=== PATIENT | male | born 1960 | race Caucasian/White ===

== ENCOUNTER 2023-09-04 05:13 | Observation (INO) ==
--- NOTE | 2023-08-19 13:04 | PAT Medication Instructions ---
Medication Instructions Date of Service August 19, 2023 Home Medications albuterol sulfate 90 mcg/actuation aerosol inhaler (ProAir HFA) 1 inh inhalation QID PRN aspirin 81 mg capsule 81 mg PO HS carvedilol 6.25 mg tablet 6.25 mg PO BID cholecalciferol (vitamin D3) 125 mcg (5,000 unit) tablet (Vitamin D3) 125 mcg PO QAM clonidine HCl 0.1 mg tablet 0.1 mg PO BID epinephrine 0.3 mg/0.3 mL injection, auto-injector 0.3 mg IM Q4H PRN Anaphylaxis fluticasone furoate 100 mcg-vilanterol 25 mcg/dose inhalation powder (Breo Ellipta) 1 inh inhalation QAM folic acid 1 mg tablet 1 mg PO QAM gabapentin 100 mg capsule 100 mg PO QAM gabapentin 300 mg capsule 300 mg PO HS ipratropium 0.5 mg-albuterol 3 mg (2.5 mg base)/3 mL nebulization soln 3 ml inhalation Q4H PRN sob levetiracetam 750 mg tablet (Keppra) 1,125 mg PO QAM levetiracetam 750 mg tablet (Keppra) 1,500 mg PO HS levocetirizine 5 mg tablet (Xyzal) 5 mg PO HS loratadine 10 mg tablet 10 mg PO QAM metformin 500 mg tablet,extended release 24hr 1,000 mg PO BID multivitamin 1 tab PO QAM omega-3 acid ethyl esters 1 gram capsule (Lovaza) 1 cap PO QAM oxycodone 5 mg tablet 5 mg PO TID PRN Severe Pain (Scale Score 7-10) sildenafil 100 mg tablet (Viagra) 100 mg PO QAM urinary retention/BPH simvastatin 10 mg tablet 10 mg PO HS tamsulosin 0.4 mg capsule 0.4 mg PO QAM thiamine HCl (vitamin B1) 100 mg tablet (Vitamin B-1) 100 mg PO QAM tiotropium bromide 18 mcg capsule with inhalation device (Spiriva with HandiHale r) 1 cap inhalation QAM MEDICATION INSTRUCTIONS: Continue as directed albuterol sulfate 90 mcg/actuation aerosol inhaler (ProAir HFA) 1 inh inhalation QID PRN (use if needed; BRING TO HOSPITAL) tiotropium bromide 18 mcg capsule with inhalation device (Spiriva with HandiHaler) 1 cap inhalation QAM fluticasone furoate 100 mcg-vilanterol 25 mcg/dose inhalation powder (Breo Ellipta) 1 inh inhalation QAM ipratropium 0.5 mg-albuterol 3 mg (2.5 mg base)/3 mL nebulization soln 3 ml inhalation Q4H PRN sob epinephrine 0.3 mg/0.3 mL injection, auto-injector 0.3 mg IM Q4H PRN Anaphylaxis ASK your prescriber and surgeon aspirin 81 mg capsule 81 mg PO HS STOP taking 2 weeks before surgery omega-3 acid ethyl esters 1 gram capsule (Lovaza) 1 cap PO QAM DO NOT take the morning of surgery multivitamin 1 tab PO QAM loratadine 10 mg tablet 10 mg PO QAM folic acid 1 mg tablet 1 mg PO QAM cholecalciferol (vitamin D3) 125 mcg (5,000 unit) tablet (Vitamin D3) 125 mcg PO QAM thiamine HCl (vitamin B1) 100 mg tablet (Vitamin B-1) 100 mg PO QAM metformin 500 mg tablet,extended release 24hr 1,000 mg PO BID Take morning of surgery With a small sip of water, OTHERWISE NOTHING TO EAT OR DRINK AFTER MIDNIGHT: gabapentin 100 mg capsule 100 mg PO QAM tamsulosin 0.4 mg capsule 0.4 mg PO QAM levetiracetam 750 mg tablet (Keppra) 1,125 mg PO QAM carvedilol 6.25 mg tablet 6.25 mg PO BID oxycodone 5 mg tablet 5 mg PO TID PRN Severe Pain (Scale Score 7-10) clonidine HCl 0.1 mg tablet 0.1 mg PO BID sildenafil 100 mg tablet (Viagra) 100 mg PO QAM urinary retention/BPH Take evening before surgery simvastatin 10 mg tablet 10 mg PO HS levetiracetam 750 mg tablet (Keppra) 1,500 mg PO HS gabapentin 300 mg capsule 300 mg PO HS levocetirizine 5 mg tablet (Xyzal) 5 mg PO HS carvedilol 6.25 mg tablet 6.25 mg PO BID oxycodone 5 mg tablet 5 mg PO TID PRN Severe Pain (Scale Score 7-10) clonidine HCl 0.1 mg tablet 0.1 mg PO BID metformin 500 mg tablet,extended release 24hr 1,000 mg PO BID Other Notes If you have any questions please call us at [phone] or [phone] or [phone] or [phone]
--- NOTE | 2023-08-22 14:29 | Anesthesiology Consultation ---
Date of Service August 22, 2023 Assessment & Plan (1) Encounter for pre-operative examination: - Check BSG AM DOS - Infectious disease screening: Per assessment on 08/22/23: No known infectious disease contacts or current infectious disease symptoms. No noted Covid positive test result in past 90 days. - Outpatient joint assessment: Pt currently scheduled for inpatient pathway. If surgeon requests review for outpatient joint pathway, patient is not recommended candidate for outpatient joint program from anesthesia standpoint based on available information. - Neurology visit (08/25/23): "Pt is currently taking Keppra 751.5 tabs a.m. and 2 tabs p.o. at bedtime. He has been stable on this current medication regimen for seizures. He has not had a seizure since medication was adjusted. He has not had lab work to check this level since October. His gabapentin was increased from the pain clinic.. He did have increased dizziness due to the increase in the med he thinks. He had an episode where he was very dizzy and fell.. He was able to return to his normal activities after he fell.. He is having a reverse shoulder replacement in 10 days.. Pt most likely had dizziness from medication interaction vs. BP vs. venous stasis issue. Advised to obtain compression stockings for dizziness. Can possibly D/C gabapentin extra dose after surgery. No seizures. He is doing well." - PCP visit (08/28/23): "Recent preop testing done.. Notable for hyponatremia at 125. Over past 2 years sodium has been running low 130s but a couple of years ago it was down as low as 124. He is on Keppra w/ neuro for seizure prevention. He does continue at least 3 beers/day & poor water intake. Keppra was decreased by a 1/2 tab in February.. Repeat BMP drawn this AM, result pending.. Remaining preop testing acceptable.. The patient's current cardiac risk factors include: TIA history. According to the revised cardiac risk index, patient's risk for surgery is one-point/class II risk. According to [facility] perioperative risk calculator, the patient's risk of CA/cardiac arrest after surgery is: 0.2%. At this time, patient's current medical conditions are stable and pt is optimized for surgery. I do recommend preop eval w/ cardiology prior to surgery which pt has planned for . His sodium shows improvement from last week which she will continue to work on. We will stop AM gabapentin. No other med changes at this time. Congratulated on cutting back to 11 1/2 beer daily over the past couple months." > 08/28 updated labs have improved hyponatremia with sodium at 128* - Hyponatremia: Preop sodium on 08/22/23 was 125. Per PCP, patient with chronic hyponatremia with baseline in the low 130s x years but down as low as 124 in the past. PCP had patient repeat BMP 08/28/23- sodium had improved to 128. PCP visit 08/28/23: "At this time, patient's current medical conditions are stable and pt is optimized for surgery." > Reviewed with Dr. Abraham. Will recheck sodium level DOS (order placed). - Confirmed with Rhoda at [facility] cardiology that appt scheduled 09/01 is for preop evaluation. Patient acceptable risk for surgery pending preop cardiology evaluation ([facility] cardio, appt 09/01). Chart Review Chart Review: Patient seen in Pre Admission Testing Teaching & Discussion Pre-Anesthesia Teaching/Discussion Notes: Instructed NPO after midnight before surgery,except medications with 15 cc of water. Medication instructions provided according to the PAT guidelines. History Surgery Operation Date: 09/04/23 09:20 Proposed Procedures p Right Total Shoulder Arthroplasty Reverse - Misbah Wilson MD Height/Weight Height: 6 ft 2 in Weight: 83.5 kg Allergies Allergy/AdvReac Type Severity Reaction Status Date / Time cephalexin [From Keflex] Allergy Severe Respiratory Verified 08/20/23 12:30 distress hydromorphone [From Dilaudid] Allergy Severe Seizure Verified 08/14/23 09:40 peanut Allergy Severe Anaphylaxis Verified 08/14/23 09:40 tramadol Allergy Severe Seizure Verified 08/14/23 09:40 Corticosteroids Allergy Intermediate Unknown Verified 08/20/23 12:30 (Glucocorticoids) chocolate flavor Allergy Unknown Allergy Verified 08/20/23 12:30 test positive guaifenesin [From Entex LA] Allergy Unknown Unknown Verified 08/14/23 09:40 phenylephrine [From Entex LA] Allergy Unknown Unknown Verified 08/14/23 09:40 phenylpropanolamine Allergy Unknown Unknown Verified 08/14/23 09:40 [From Entex LA] Medications Home Medications Medication Instructions Recorded Confirmed Last Taken albuterol sulfate 90 mcg/actuation 1 inh inhalation QID PRN sob 08/14/23 08/14/23 Unknown aerosol inhaler (ProAir HFA) aspirin 81 mg capsule 81 mg PO HS 08/14/23 08/14/23 Unknown carvedilol 6.25 mg tablet 6.25 mg PO BID 08/14/23 08/14/23 Unknown cholecalciferol (vitamin D3) 125 125 mcg PO QAM 08/14/23 08/14/23 Unknown mcg (5,000 unit) tablet (Vitamin D3) clonidine HCl 0.1 mg tablet 0.1 mg PO BID 08/14/23 08/14/23 Unknown epinephrine 0.3 mg/0.3 mL 0.3 mg IM Q4H PRN Anaphylaxis 08/14/23 08/14/23 Unknown injection, auto-injector fluticasone furoate 100 1 inh inhalation QAM 08/14/23 08/14/23 Unknown mcg-vilanterol 25 mcg/dose inhalation powder (Breo Ellipta) folic acid 1 mg tablet 1 mg PO QAM 08/14/23 08/14/23 Unknown gabapentin 100 mg capsule 100 mg PO QAM 08/14/23 08/14/23 Unknown gabapentin 300 mg capsule 300 mg PO HS 08/14/23 08/14/23 Unknown ipratropium 0.5 mg-albuterol 3 mg 3 ml inhalation Q4H PRN sob 08/14/23 08/14/23 Unknown (2.5 mg base)/3 mL nebulization soln levetiracetam 750 mg tablet 1,125 mg PO QAM 08/14/23 08/14/23 Unknown (Keppra) levetiracetam 750 mg tablet 1,500 mg PO HS 08/14/23 08/14/23 Unknown (Keppra) levocetirizine 5 mg tablet (Xyzal) 5 mg PO HS 08/14/23 08/14/23 Unknown loratadine 10 mg tablet 10 mg PO QAM 08/14/23 08/14/23 Unknown metformin 500 mg tablet,extended 1,000 mg PO BID 08/14/23 08/14/23 Unknown release 24hr multivitamin 1 tab PO QAM 08/14/23 08/14/23 Unknown omega-3 acid ethyl esters 1 gram 1 cap PO QAM 08/14/23 08/14/23 Unknown capsule (Lovaza) oxycodone 5 mg tablet 5 mg PO TID PRN Severe Pain (Scale 08/14/23 08/14/23 Unknown Score 7-10) ramipril 10 mg capsule 10 mg PO QAM 08/14/23 08/14/23 Unknown sildenafil 100 mg tablet (Viagra) 100 mg PO QAM urinary retention/BPH 08/14/23 08/14/23 Unknown simvastatin 10 mg tablet 10 mg PO HS 08/14/23 08/14/23 Unknown tamsulosin 0.4 mg capsule 0.4 mg PO QAM 08/14/23 08/14/23 Unknown thiamine HCl (vitamin B1) 100 mg 100 mg PO QAM 08/14/23 08/14/23 Unknown tablet (Vitamin B-1) tiotropium bromide 18 mcg capsule 1 cap inhalation QAM 08/14/23 08/14/23 Unknown with inhalation device (Spiriva with HandiHaler) Past Medical History Medical History Anxiety situational Asthma BPH (benign prostatic hyperplasia) Chronic bronchitis with COPD (chronic obstructive pulmonary disease) Stable Degenerative disc disease Degenerative joint disease Diabetes mellitus, type 2 NIDDM Heartburn diet controlled Hepatitis B Hx approximately 2002, no current issues per patient Hx of colonic polyp Hypertension Lyme disease Hx approximately 2018, no problems since Osteoarthritis Pneumonia Multiple, most recent episode approximately 2014 Seizure Grand-mal seizures. Last seizure approximately 2019 Follows with [facility] (annually)- appt 08/25/23 Sleep apnea 3lpm via [place] HS Transient ischemic attack (TIA) Approximately 2019 Exercise / Class Metabolic Activity III < 4 Walking/Shop/Light housework (one FS (no CP, + SOB)) Past Family History Family History Brother FHx: colon cancer Other No family history of adverse response to anesthesia Past Surgical History Surgical History H/O left inguinal hernia repair History of amputation left ring finger (young adult) History of cardiac cath x2 (10+ years) no stents. unable to tolerate stress test (reason for cardiac caths) History of cholecystectomy History of colonoscopy History of nasal septoplasty S/P arthroscopy of right shoulder + RCR S/P epidural steroid injection lumbar and cervical S/P hammer toe correction B/L Past Anesthesia History No Hx of Anesthesia Complications and No Family Hx of Anesthesia Complications History of PONV No Hx of PONV and No Hx of Motion Sickness Social History Smoking Status: Current every day smoker Smoking cigarettes per day: 20 cigs/day Do You Dip or Chew Tobacco: No Hx Alcohol Use: Yes Alcohol type: beer alcohol intake frequency: 3 or more drinks per day (3 beers/day) Hx Substance Use: No substance use type: does not use Review of Systems Patient denies chest pain, shortness of breath, fever, chills, cough, wheezing, palpitations. Physical Exam Vital Signs VITALS BP 91/65 (Per patient, recent BP med adjustments being made, will f/u with cardio prior to surgery to further review/adjust if needed) P 89 TEMP 98.1 SP02 96%RA RESP 16 PHYSICAL Mildly decreased cervical extension range of motion. Full TMJ range of motion. TMD 4 finger breaths Mallampati Score 1 Dentition: full dentures upper/lower Lungs: + crackles, mild expiratory wheezes Cardiac: regular rate and rhythm, no murmurs noted Spine: normal Carotid arteries: negative bruit Extremities: left ring finger amputation Short welsh Lab Results Anesthesia Preop Results Results Anesthesia Widget: WBC 6.19 K/ul (4.8-10.8) 08/22/23 Hgb 12.8 g/dl (14.0-18.0) L 08/22/23 Hct 34.9 % (42.0-52.0) L 08/22/23 Plt 202 K/uL (130-400) 08/22/23 Na 125 mmol/L (136-145) L 08/22/23 K 4.4 mmol/L (3.5-5.1) 08/22/23 Cl 92 mmol/L (98-107) L 08/22/23 CO2 27 mmol/L (21-32) 08/22/23 BUN 7 mg/dl (6-23) 08/22/23 Creat 0.87 mg/dl (0.6-1.4) 08/22/23 Glucose Level 104 mg/dl (70-99(Fasting)) H 08/22/23 PT 10.0 Seconds (9.0-12.0) 08/22/23 PTT 28.8 Seconds (21.0-31.0) 08/22/23 INR 0.9 (0.9-1.1) 08/22/23 HA1c 5.8 % (4.5-5.6) H 08/22/23 Urine Color Yellow 08/22/23 Urine Appearance Clear (Clear) 08/22/23 Urine pH 7.5 (4.5-7.5) 08/22/23 Urine Specific [place] 1.004 (1.000-1.030) 08/22/23 Urine Protein Negative (Negative) 08/22/23 Urine Glucose (UA) Negative (Negative) 08/22/23 Urine Ketones Negative (Negative) 08/22/23 Urine Blood Negative (Negative) 08/22/23 Urine Nitrite Negative (Negative) 08/22/23 Urine Bilirubin Negative (Negative) 08/22/23 Urine Urobilinogen Negative (Negative) 08/22/23 Urine Leukocyte Esterase Negative (Negative) 08/22/23 Blood Type O Positive 08/22/23 Antibody Screen NEGATIVE 08/22/23 Testing Electrocardiogram Date: 07/15/23 SR at 89bpm. Chest X-Ray Date: 08/22/23 FINDINGS: Cardiac mediastinal and hilar silhouettes are within normal limits. No pneumothorax, pleural effusion, airspace consolidation or pulmonary edema. Age- indeterminate mild midthoracic compression deformity without retropulsion. IMPRESSION: No acute process. Echocardiogram Date: 03/29/20 EF 55-60%. Poorly visualized cardiac valves with no significant stenosis or insufficiency by Doppler interrogation. Stress Test Exercise stress test Date: 04/12/2020 Exercise treadmill test is negative for ischemia with target heart rate achieved but at a very low workload of 3.0 METS, which is indicative of cardiovascular deconditioning. Given the development of chest pain with exercise stress, further workup with pharmacologic stress testing is recommended. Lexiscan Cardiolite stress test Date: 05/09/2020 "No ischemia or infarct" per 06/2023 cardiology office visit note, attempts to obtain official report unsuccessful* Other Testing CTA Neck Date: 03/28/2020 "Nl study" per 06/2023 cardiology office visit note, attempts to obtain official report unsuccessful*
--- NOTE | 2023-09-03 19:01 | History & Physical Report ---
Date of Service September 03, 2023 Assessment & Plan (1) Rotator cuff arthropathy of right shoulder: Plan: Treatment options discussed with patient. He has AVN as well as likely failed rotator cuff repair. He has failed conservative measures and would like to proceed with surgery. Risks, benefits and alternatives to surgery including but not limited to infection, DVT, pain, stiffness, need for revision surgery, damage to blood vessels, damage to nerves, PE, , were discussed with the patient and they wish to proceed. Plan on right reverse total shoulder arthroplasty scheduled fo 09/04/23 at [facility] with Dr. Wilson. All questions answered. Patient will follow up post op. History of Present Illness Chief Complaint: Right shoulder pain Primary Care Provider: Evelyn Naranjo PA-C 63yo male with PMHx significant for anxiety, asthma, BPH, COPD, HepB, DM2, HTN , seizure disorder who presents with ongoing right shoulder pain worsened after a fall in April. Patient has history of prior dislocation as well as previous rotator cuff repair with failed repair. He has ongoing pain interfering with his daily activity. He has failed conservative measures and would like to proceed with surgical intervention. Patient denies headaches, sweats, fevers, chills, double vision, blurred vision, cough, sore throat, dysphagia, chest pain, sob, wheezing, n/v/d/c, numbness, tingling, fatigue, urinary symptoms, mood disorders. ROS positive for right shoulder pain and stiffness. Allergies Allergy/AdvReac Type Severity Reaction Status Date / Time cephalexin [From Keflex] Allergy Severe Respiratory Verified 08/20/23 12:30 distress hydromorphone [From Dilaudid] Allergy Severe Seizure Verified 08/14/23 09:40 peanut Allergy Severe Anaphylaxis Verified 08/14/23 09:40 tramadol Allergy Severe Seizure Verified 08/14/23 09:40 Corticosteroids Allergy Intermediate Unknown Verified 08/20/23 12:30 (Glucocorticoids) chocolate flavor Allergy Unknown Allergy Verified 08/20/23 12:30 test positive guaifenesin [From Entex LA] Allergy Unknown Unknown Verified 08/14/23 09:40 phenylephrine [From Entex LA] Allergy Unknown Unknown Verified 08/14/23 09:40 phenylpropanolamine Allergy Unknown Unknown Verified 08/14/23 09:40 [From Entex LA] Home Medications Medication Instructions Recorded Confirmed Type albuterol sulfate 90 mcg/actuation 1 inh inhalation QID PRN sob 08/14/23 08/14/23 History aerosol inhaler (ProAir HFA) aspirin 81 mg capsule 81 mg PO HS 08/14/23 08/14/23 History carvedilol 6.25 mg tablet 6.25 mg PO BID 08/14/23 08/14/23 History cholecalciferol (vitamin D3) 125 125 mcg PO QAM 08/14/23 08/14/23 History mcg (5,000 unit) tablet (Vitamin D3) clonidine HCl 0.1 mg tablet 0.1 mg PO BID 08/14/23 08/14/23 History epinephrine 0.3 mg/0.3 mL 0.3 mg IM Q4H PRN Anaphylaxis 08/14/23 08/14/23 History injection, auto-injector fluticasone furoate 100 1 inh inhalation QAM 08/14/23 08/14/23 History mcg-vilanterol 25 mcg/dose inhalation powder (Breo Ellipta) folic acid 1 mg tablet 1 mg PO QAM 08/14/23 08/14/23 History gabapentin 100 mg capsule 100 mg PO QAM 08/14/23 08/14/23 History gabapentin 300 mg capsule 300 mg PO HS 08/14/23 08/14/23 History ipratropium 0.5 mg-albuterol 3 mg 3 ml inhalation Q4H PRN sob 08/14/23 08/14/23 History (2.5 mg base)/3 mL nebulization soln levetiracetam 750 mg tablet 1,125 mg PO QAM 08/14/23 08/14/23 History (Keppra) levetiracetam 750 mg tablet 1,500 mg PO HS 08/14/23 08/14/23 History (Keppra) levocetirizine 5 mg tablet (Xyzal) 5 mg PO HS 08/14/23 08/14/23 History loratadine 10 mg tablet 10 mg PO QAM 08/14/23 08/14/23 History metformin 500 mg tablet,extended 1,000 mg PO BID 08/14/23 08/14/23 History release 24hr multivitamin 1 tab PO QAM 08/14/23 08/14/23 History omega-3 acid ethyl esters 1 gram 1 cap PO QAM 08/14/23 08/14/23 History capsule (Lovaza) oxycodone 5 mg tablet 5 mg PO TID PRN Severe Pain (Scale 08/14/23 08/14/23 History Score 7-10) ramipril 10 mg capsule 10 mg PO QAM 08/14/23 08/14/23 History sildenafil 100 mg tablet (Viagra) 100 mg PO QAM urinary retention/BPH 08/14/23 08/14/23 History simvastatin 10 mg tablet 10 mg PO HS 08/14/23 08/14/23 History tamsulosin 0.4 mg capsule 0.4 mg PO QAM 08/14/23 08/14/23 History thiamine HCl (vitamin B1) 100 mg 100 mg PO QAM 08/14/23 08/14/23 History tablet (Vitamin B-1) tiotropium bromide 18 mcg capsule 1 cap inhalation QAM 08/14/23 08/14/23 History with inhalation device (Spiriva with HandiHaler) Past Med/Surg History Medical History Anxiety situational Asthma BPH (benign prostatic hyperplasia) Chronic bronchitis with COPD (chronic obstructive pulmonary disease) Stable Degenerative disc disease Degenerative joint disease Diabetes mellitus, type 2 NIDDM Heartburn diet controlled Hepatitis B Hx approximately 2002, no current issues per patient Hx of colonic polyp Hypertension Lyme disease Hx approximately 2018, no problems since Osteoarthritis Pneumonia Multiple, most recent episode approximately 2015 Seizure Grand-mal seizures. Last seizure approximately 2019 Follows with [facility] (annually)- appt 08/25/23 Sleep apnea 3lpm via [place] HS Transient ischemic attack (TIA) Approximately 2019 Surgical History H/O left inguinal hernia repair History of amputation left ring finger (young adult) History of cardiac cath x2 (10+ years) no stents. unable to tolerate stress test (reason for cardiac caths) History of cholecystectomy History of colonoscopy History of nasal septoplasty S/P arthroscopy of right shoulder + RCR S/P epidural steroid injection lumbar and cervical S/P hammer toe correction B/L Family History Brother FHx: colon cancer Other No family history of adverse response to anesthesia Social History Smoking Status: Current every day smoker Tobacco Type: Cigarettes Cigarettes Per Day: 20 cigs/day; Second Hand Exposure: No; Do You Dip or Chew Tobacco: No; Tobacco Cessation Education Requested by Patient: No Hx Alcohol Use: Yes Alcohol type: beer Hx Substance Use: No Preferred Language: Uzbek Communication Ability: Effective Experimental Display Builder Required: No Beliefs That Will Affect Care: None Current Living Situation: Spouse Other Information That Helps Us Care for You: No Feels Safe at Home: Yes Safety Concerns: Feels Safe At This Time Assistive Devices: Cane, Glasses, Oxygen - at Night, Scooter/Electric Scooter and Walker Review of Systems All systems reviewed & are unremarkable except as noted in HPI & below Physical Exam Constitutional: well developed and well nourished; no acute distress Eyes: PERRL, conjunctivae normal, anicteric sclerae ENMT: external ear and nose normal, oropharynx normal Neck: trachea midline, no thyromegaly Respiratory: normal respiratory effort, lungs clear to auscultation Cardiovascular: RRR, no murmur, no edema Musculoskeletal: Right shoulder: Tenderness anterolateral acromion. Positive impingement signs, Significant deficits active ROM. Functional deltoid. Abductiont o 45 degrees, FF to 30 degrees, ER to 10 degrees. Strength-3+/5 ER, 5-/5 IR, abduction to 3/5. Skin: no rashes, warm and dry Neurologic: patellar DTR's 2+ bilat, sensation intact Psychiatric: A+Ox3, euthymic affect Results & Data Diagnostic Findings Right shoulder radiographs demonstrate defect humeral head consistent with AVN, proximal migration of humerus. MRI demonstrates increased signal humeral head consistent with AVN, likely failed rotator cuff repair with thin layer of tissue likely scar.
[2023-09-04] MEDS ORDERED: VANCOMYCIN HCL 1,250 MG in SODIUM CHLORIDE 0.9% 250 ML IV SCH (06:00)
[2023-09-04] MEDS ORDERED: METOCLOPRAMIDE HCL 10 MG TABLET PO SCH (06:00)
[2023-09-04] MEDS ORDERED: TRANEXAMIC ACID 1,000 MG **IV Intra-op IV SCH (06:00)
[2023-09-04] MEDS ORDERED: GABAPENTIN 300 MG CAP PO SCH ×2 (06:00→21:00)
[2023-09-04] MEDS ORDERED: CeleBREX 200 MG CAP PO SCH (06:00)
[2023-09-04] MEDS ORDERED: ACETAMINOPHEN 500 MG TAB PO SCH (06:00)
[2023-09-04] MEDS ORDERED: TRANEXAMIC ACID 1,000 MG **IV Pre-op IV SCH (06:00)
[2023-09-04] MEDS ORDERED: LR 60ML/HR IV SCH (06:00)
[2023-09-04] MEDS ORDERED: FAMOTIDINE 20 MG TAB PO SCH (06:00)
[2023-09-04 06:05] LABS: BUN Creatinine Ratio 7.8 (10-20); Calcium 9.2 mg/dl (8.6-10.3); Creatinine Clr Calc Pharmacy 95.1 ml/min; Est GFR (African American) 103.5 ml/min; Est GFR (Non-African American) 89.3 ml/min; Potassium 4.3 mmol/L (3.5-5.1)
[2023-09-04] MEDS ORDERED: BUPIVACAINE 0.5 % 5 MG/1 ML PF 10ML VIAL ONE (06:23)
[2023-09-04] MEDS ORDERED: PROPOFOL IV EMULSION 10 MG/ML 20 ML VIAL IV ONE (06:36)
[2023-09-04] MEDS ORDERED: MIDAZOLAM HCL 1 MG/ML 2ML VIAL ONE ×2 (06:36)
[2023-09-04] MEDS ORDERED: fentaNYL citrate PF 100 MCG/2 ML VIAL ONE (06:36)
[2023-09-04] MEDS ORDERED: LIDOCAINE 2% 2 ML VIAL/AMP(20MG/ML) INFIL ONE (06:36)
[2023-09-04] MEDS ORDERED: ROCURONIUM BROMIDE 10 MG/ML 5 ML VIAL IV ONE ×2 (06:37→09:45)
[2023-09-04] MEDS ORDERED: ONDANSETRON INJ 2 MG/ML 2 ML VIAL ONE ×2 (06:37→08:06)
--- NOTE | 2023-09-04 07:10 | History & Physical Bridge Note ---
Date of Service September 04, 2023 History & Physical Bridge Note I have examined the patient, reviewed the History & Physical and in the interval since the performance of the History & Physical I have noted the following changes of clinical significance: no changes noted
[2023-09-04] MEDS ORDERED: ePHEDrine sulfate 50 MG/ML AMP ONE (07:56)
[2023-09-04] MEDS ORDERED: PROMETHAZINE HCL 12.5 MG in SODIUM CHLORIDE 0.9% 50 ML IV PRN (09:04)
[2023-09-04] MEDS ORDERED: FLUMAZENIL 0.1 MG/1 ML 10 ML VIAL IV PRN (09:04)
[2023-09-04] MEDS ORDERED: LABETALOL HCL IV 5 MG/ML 20ML IV PRN (09:04)
[2023-09-04] MEDS ORDERED: ATROPINE SULFATE 0.1 MG/ML 10ML SYR IV PRN (09:04)
[2023-09-04] MEDS ORDERED: ePHEDrine sulfate 50 MG/ML AMP IV PRN (09:04)
[2023-09-04] MEDS ORDERED: NALOXONE HCL 0.4 MG/1 ML VIAL/CARP IV PRN ×2 (09:04→12:00)
[2023-09-04] MEDS ORDERED: ONDANSETRON INJ 2 MG/ML 2 ML VIAL IV PRN ×2 (09:04→12:00)
[2023-09-04] MEDS ORDERED: SUGAMMADEX SODIUM 200 MG/2 ML VIAL IV ONE (09:17)
[2023-09-04] MEDS ORDERED: LABETALOL HCL IV 5 MG/ML 20ML IV ONE (10:57)
[2023-09-04] MEDS: fentaNYL citrate PF 100 MCG/2 ML VIAL IV PRN ×2 (11:10→11:15)
--- NOTE | 2023-09-04 11:11 | Operative Report ---
Post Operative Report Pre & Post Diagnosis Operation Date: 09/04/23 07:00 Pre-Op Diagnosis: Right Shoulder Avascular necrosis humeral head,Rotator Cuff arthropathy, history of prior rotator cuff repair. Post-Op Diagnosis: Right Shoulder Avascular process humeral head, rotator cuff arthropathy, history of prior rotator cuff repair with retained hardware, Biceps tendinopathy. I identified the patient and participated in the time-out.: Yes Procedure Operation Date: 09/04/23 07:00 Actual Procedures p Right Reverse Total Shoulder Arthroplasty, biceps tenodesis, hardware removal (suture anchors x4 and old suture material ) - Misbah Wilson MD Surgeon Misbah Wilson MD Pulmonologist/Intensivist Gopal MITTAL Estimated Blood Loss 75 Findings Consistent with Post-Op Diagnosis Specimens humeral head cut Drains 2 Hemovac Anesthesia Type General Regional Complications none Disposition Accompanied Patient To Recovery: No Disposition: Recovery Room Indications 63-year-old male with chronic pain dysfunction pseudo paralytic arm post arthroscopic rotator cuff repair surgery. Patient has AVN humeral head with collapse and large cystic changes in the head greater tuberosity area with thin rotator cuff tissue proximal migration of the humerus but no clear complete tear of the rotator cuff. Patient only had 20 degrees of flexion and abduction actively with exam in preop holding area. Description of Procedure The patient was taken to the operating room and anesthetized under regional block and general anesthetic. The patient was positioned on the operating table in a 30 beach chair position with a towel roll under the medial border of the right scapula. The arm was draped free to be able to manipulate the shoulder as needed. The right upper extremity was prepped and draped in usual sterile fashion. Exam demonstrated good passive range of motion with flexion to 150 degrees abduction 100 degrees external rotation 70 degrees. There is crepitation with range of motion. All benign appearing arthroscopic scars noted. An anterior deltopectoral approach was performed. A longitudinal incision was made in the deltopectoral interval. The skin was incised sharply. Subcutaneous flaps were elevated off the fascia. The cephalic vein was dissected out and retracted lateral with the deltoid. The clavipectoral fascia was substantially scarred and there was scarred bursal tissue overlying the rotator cuff. The scarred clavipectoral fascia was divided at the lateral margin of the conjoined tendon and extended up to the CA ligament. The scarred subacromial bursa was dissected off the rotator cuff. This revealed that there was thin intact scarred rotator cuff tissue covering the humeral head in the subacromial space. Biceps tendon was widened inflamed and substantially scarred up into the bicipital groove area. it seemed to be lax and there was no intra-articular biceps so this may have been ruptured or released previously. the biceps tendon was tenodesed to the pectoralis tendon using a [id number] suture and combination whipstitch type suture technique. The circumflex vessels were identified and tied off with silk ties and divided laterally. The subscapularis tendon was then taken down off of the lesser tuberosity subperiosteally with a peel technique, a Vicryl traction suture was placed and a subperiosteal dissection was performed along the neck of the humerus as the arm was gradually externally rotated exposing the humeral head. The humeral head findings demonstrated evidence of softening of the articular surface with collapse consistent with avascular necrosis as well as cystic changes in the head laterally adjacent to the greater tuberosity with deformity of the head. retractors were readjusted and a Colon elevator was used to assist in releasing the capsule of the neck of the humerus. The capsule underlying the subscapularis tendon was accessed with rotator interval area and incision was carried down to around the 5 o'clock position the capsule from the subscapularis tendon staying above the level of the axillary nerve. A Fukuda retractor was placed into the joint retracting the humeral head posterior. Glenoid findings demonstrated Normal articular surface and labrum. The labrum was resected. an anterior-inferior and posterior inferior capsular release were performed with electrocautery and a Colon elevator on bone. Attention was then taken to the humeral preparation. The cutting guide was placed into the humeral head. It was positioned at 20 of retroversion. Oscillating saw was used to resect the humeral head giving the cut above the level of the posterior rotator cuff insertion site. The humerus was then prepared for the stem. I used the ascend flex stem from [employer]. the centering awl was used to enter the canal and peek anchors were encountered which were limiting the exposure. I removed 2 Helicoil peek anchors along with associated sutures and the tips of MultiFix type anchors were also removed. The sizing broaches were then used followed by trial broaches up to a size 4B long which had the appropriate fit and fill. The appropriate sized cut protector was placed. The humerus was then retracted posterior to the glenoid. The glenoid was sized for a 36 mm glenosphere. The guide for the 25 mm baseplate was positioned in a 10 inferior tilt and the central drill hole was made. The reamer for the 25 mm aequalis baseplate was used. The central drill was widened for the peg. The hydroxyapatite-coated 25 mm standard post baseplate was impacted into position. The base plate was transfixed with superior and inferior locking screws and anterior and posterior compression screws with stable fixation. The fan reamer was used for the 36 millimeter glenoid sphere. After irrigation the36 millimeter +2 inferior offset glenoid sphere was impacted onto the baseplate and the security screw was tightened. Attention was taken back to the humerus. The cut protector was removed and the +0 low offset humeral tray trial was assembled to the trial stem rotated appropriately to get bony coverage and then screwed in position. A trial reduction was performed. I could not reduce the humerus to the glenoid because it was too tight. The trial was removed and I took 4 mm of bone off the neck with a new neck cut and we broached the humerus and subsequently performed another trial reduction which reduced well with good stability no shuck and good range of motion. The trials were removed. 3 drill holes are made into the harder bone in the bicipital groove area and 3 #5 FiberWire sutures were placed transosseously. The canal was irrigated with antibiotic solution with bacitracin. The final component was assembled. The final component was low offset +0 tray assembled to ascend flex PTC 4B long stem with +6, 36 mm reversed polyethylene insert.This was then impacted into the humerus with a tight press-fit. It was reduced to the glenoid sphere. Stability was verified. Subscapularis was repaired with the #5 FiberWire sutures using Madhav-Mario suture technique. Lateral row soft tissue repair was performed with #2 FiberWire [id number] sutures. The pectoralis was repaired with #2 FiberWire emvvyk-[id number]-xcrmo sutures reinforcing the biceps tendon tenodesis. The arm was taken through a range of motion which demonstrated 140 degrees forward flexion 100 degrees AB duction and 45 degrees external rotation without tension on repair. The implant was stable through the range of motion tested. The wound was copiously irrigated. 2 Hemovac drains were placed. The deltopectoral interval was closed with [id number] #1 Vicryl sutures. The subcutaneous tissues were closed with 2-0 Vicryl sutures. The skin was closed with [place]. Sterile dressings were applied and a shoulder immobilizer. Gopal MITTAL, My physician assistant professor of physics acted as logistics assistant throughout the procedure .He performed functions including patient positioning, arm positioning, prepping and draping, soft tissue retraction, instrument management, suture management and performed the subcutaneous and skin closure and will participate in the postoperative care of the patient. I attest to the content of the Intraoperative Record and any orders documented therein. Any exceptions are noted below.
--- NOTE | 2023-09-04 11:34 | Anesthesiology Progress Note ---
Date of Service September 04, 2023 Anesthesia Post Procedure Vital Signs Vital Signs: Temp Pulse Pulse Resp BP Pulse Ox O2 Del Method 09/04/23 11:20 96 H 20 127/76 95 Nasal Cannula 09/04/23 11:10 90 20 122/98 96 Nasal Cannula 09/04/23 11:00 89 20 127/87 97 Oxymask 09/04/23 10:52 36.1 C L 92 H 20 130/86 97 Oxymask 09/04/23 05:56 Room Air 09/04/23 05:56 36.7 C 92 H 20 133/87 100 Room Air O2 Flow Rate 09/04/23 11:20 2 09/04/23 11:10 2 09/04/23 11:00 4 09/04/23 10:52 4 09/04/23 05:56 09/04/23 05:56 Pain Intensity Right Shoulder: Pain Intensity: 1 Transfer of Care Handoff Completed per policy Notes Mental Status: alert / awake / arousable Patient Amnestic to Procedure: Yes Nausea / Vomiting: adequately controlled Pain: adequately controlled Airway Patency, RR, SpO2: stable & adequate BP & HR: stable & adequate Hydration State: stable & adequate Anesthetic Complications: no major complications apparent
--- NOTE | 2023-09-04 11:51 | XRay Report ---
XR shoulder RT min 2V routine CLINICAL HISTORY: Post shoulder surgery COMPARISON STUDY: None. FINDINGS: Status post reverse right total shoulder arthroplasty. The hardware appears intact. No frac ture or dislocation. Skin elise and surgical drains are in place. IMPRESSION: Status post reverse right total shoulder arthroplasty. No evidence for hardware complica tion. ACT 112: Negative or not required by law. Electronically signed by: Ambrocio Nguyen M.D. 09/04/2023 11:50 AM
[2023-09-04] MEDS ORDERED: METOCLOPRAMIDE HCL INJ 5 MG/ML 2 ML VIAL IV PRN (12:00)
[2023-09-04] MEDS ORDERED: ALBUT/IPRATROP 3MG/0.5MG NEB 3 ML VIAL INH PRN (12:00)
[2023-09-04] MEDS ORDERED: VANCOMYCIN CONSULT ACTIVE PRN (12:00)
[2023-09-04] MEDS ORDERED: bisacodyL 10 MG SUPP PR PRN (12:00)
[2023-09-04] MEDS ORDERED: ALBUTEROL HFA 8 GM INHALER INH PRN (12:00)
[2023-09-04] MEDS ORDERED: MoRPHine SULFATE 2 MG/ML CARP IV PRN (12:00)
[2023-09-04] MEDS ORDERED: MAGNESIUM HYDROXIDE SUSP 30 ML UDC PO PRN (12:00)
[2023-09-04] MEDS ORDERED: PHARMACY GLYCEMIC MGMT CONSULT PRN (12:00)
[2023-09-04] MEDS ORDERED: EPINEPHrine INJ 1 MG/ML AMP IM PRN (12:18)
[2023-09-04] MEDS ORDERED: INFLUENZA VACCINE HIGH-DOSE (HD-IIV4) PF 65+ 0.7mL SYR IM ONE (12:19)
[2023-09-04] MEDS ORDERED: GLUCAGON FOR INJ 1 MG VIAL SQ PRN (12:22)
[2023-09-04] MEDS ORDERED: GLUCOSE 10 TAB/TUBE PO PRN (12:22)
[2023-09-04] MEDS ORDERED: GLUCOSE 40% GEL 15 GM TUBE PO PRN (12:22)
[2023-09-04] MEDS ORDERED: CARBOHYDRATES FOR HYPOGLYCEMIA PO PRN (12:22)
[2023-09-04] MEDS ORDERED: DEXTROSE 50% 50 ML SYRINGE IV PRN (12:22)
[2023-09-04] MEDS: SODIUM CHLORIDE 0.9% 1,000 ML IV SCH (13:02)
[2023-09-04] MEDS: ACETAMINOPHEN 500 MG TAB PO SCH ×2 (13:03→19:47)
[2023-09-04] MEDS: INSULIN ASPART PER UNIT CHARGE SC SCH ×3 (13:43→22:54)
--- NOTE | 2023-09-04 14:10 | Pharmacy Report ---
Pharmacy Glycemic Short Note 2 - Date of Service September 04, 2023 - Glycemic Short BSG Results (Last 24 hours): 09/04/23 09/04/23 09/04/23 05:36 05:44 10:54 Glucose 105 H POC Glucose 104 H 151 H 09/04/23 12:07 Glucose POC Glucose 134 H OUTPATIENT ANTIDIABETIC REGIMEN: * Metformin ER 1000 mg PO BIDM * HbA1c: 5.8% (08/22/23) ASSESSMENT: * 63 yo M admitted on 09/04/23 postoperatively following a right total shoulder arthroplasty. Pharmacy has been consulted to assist with inpatient glycemic management. Patient is a Type 2 diabetic as an outpatient. Please refer to outpatient regimen and most recent HbA1c above. * Preop BSG was 104 mg/dL. Postop BSG was 134 mg/dL. * No steroid received perioperatively. Ordered and tolerating a type 2 diet. * Hold basal for now. Novolog based on weight/stress 2-3. PLAN FOR INPATIENT GLYCEMIC CONTROL: * Hold outpatient oral diabetes medications * Basal insulin * Hold * Bolus insulin * NovoLog per scale ACHS or Q6hrs while NPO * Goal Range: Low 110 mg/dL - High 140 mg/dL * Correction Factor: 25 mg/dL/unit * Nutritional / Prandial insulin per carb ratio of 1 unit per 8 grams CHO consumed
[2023-09-04] MEDS: carvediloL 6.25 MG TAB PO SCH (16:44)
[2023-09-04] MEDS: oxyCODONE HCL IR 5 MG TAB (IMMEDIATE RELEASE) PO PRN ×2 (16:44→20:52)
[2023-09-04] MEDS ORDERED: VANCOMYCIN HCL 1,250 MG in SODIUM CHLORIDE 0.9% 500 ML IV SCH (18:00)
[2023-09-04] MEDS: cloNIDine HCL 0.1 MG TAB PO SCH (19:47)
[2023-09-04] MEDS: DOCUSATE SODIUM 100 MG CAP PO SCH (19:47)
[2023-09-04] MEDS ORDERED: levETIRAcetam 500 MG TAB PO SCH (21:00)
[2023-09-04] MEDS ORDERED: SIMVASTATIN 10 MG TAB PO SCH (21:00)
[2023-09-04] MEDS ORDERED: SENNA 8.6 MG TAB PO SCH (21:00)
[2023-09-05] MEDS: oxyCODONE HCL IR 5 MG TAB (IMMEDIATE RELEASE) PO PRN ×3 (00:51→09:58)
[2023-09-05] MEDS: SODIUM CHLORIDE 0.9% 1,000 ML IV SCH (01:13)
[2023-09-05] MEDS: ACETAMINOPHEN 500 MG TAB PO SCH (04:53)
--- NOTE | 2023-09-05 07:50 | Orthopedic Progress Note ---
Date of Service September 05, 2023 Assessment & Plan (1) S/p reverse total shoulder arthroplasty: Plan: Postop day #1 right reverse total shoulder arthroplasty -PT/OT: No formal therapy at this time. We will do elbow/wrist/hand motions, shrugs, pendulums. No shoulder range of motion. -DVT prophylaxis: SCDs, aspirin 81 mg daily -Pain management as written -A.m. labs are pending. -Discharge planning: Plan on discharge home today as long as he continues to remain stable and progresses well with therapy. Admission and Anticipated Discharge Date Admission Date: September 04, 2023 Subjective Patient is postop day #1 right reverse total shoulder arthroplasty. Has some pain this morning however is controlled. No other complaints. Denies chest pain, shortness of breath, nausea/vomiting/diarrhea, headaches or dizziness. Hoping to go home today. Review of Systems Review of Systems: All systems reviewed & are unremarkable except as noted in Subjective Physical Exam Physical Exam: Right shoulder: Sling is in place. Dressing is clean, dry, intact. Fingers are mobile with good assembler lay ups strength. Able to extend his wrist. Distally neurovascular status and sensation is grossly intact. Constitutional: WD/WN, vitals as above Results & Data Vital Signs (Past 12 Hours) Vital Signs Temp Pulse Resp BP Pulse Ox O2 Del Method O2 Flow Rate 09/05/23 07:39 36.6 C 87 16 148/95 H 92 Room Air 09/05/23 02:49 36.7 C 80 20 118/81 99 Nasal Cannula 2 09/04/23 22:22 36.6 C 91 H 18 117/76 96 Nasal Cannula 2
[2023-09-05] MEDS: DOCUSATE SODIUM 100 MG CAP PO SCH (08:28)
[2023-09-05] MEDS: INSULIN ASPART PER UNIT CHARGE SC SCH ×2 (08:32→12:20)
[2023-09-05] MEDS: cloNIDine HCL 0.1 MG TAB PO SCH (08:33)
[2023-09-05] MEDS: carvediloL 6.25 MG TAB PO SCH (08:34)
[2023-09-05] MEDS ORDERED: UMECLIDINIUM BROMIDE 62.5MCG/BLISTER 7 PUFFS/INHALER INH SCH (09:00)
[2023-09-05] MEDS ORDERED: TAMSULOSIN HCL 0.4 MG CAP PO SCH (09:00)
[2023-09-05] MEDS ORDERED: GABAPENTIN 100 MG CAP PO SCH (09:00)
[2023-09-05] MEDS ORDERED: ENALAPRIL MALEATE 10 MG TAB PO SCH (09:00)
[2023-09-05] MEDS ORDERED: NON-FORMULARY MEDICATION (Multivitamin Tablet) PO SCH (09:00)
[2023-09-05] MEDS ORDERED: MULTIVITAMIN TAB PO SCH (09:00)
[2023-09-05] MEDS ORDERED: levETIRAcetam 250 MG TAB PO SCH (09:00)
[2023-09-05] MEDS ORDERED: CHOLECALCIFEROL 5,000 UNITS 125 MCG TAB PO SCH (09:00)
[2023-09-05] MEDS ORDERED: FOLIC ACID 1 MG TAB PO SCH (09:00)
[2023-09-05] MEDS ORDERED: FLUTICASONE/VILANTEROL 100/25MCG 14 PUFFS/INHALER INH SCH (09:00)
[2023-09-05] MEDS ORDERED: LORATADINE 10 MG TAB PO SCH (09:00)
[2023-09-05] MEDS ORDERED: THIAMINE HCL 100 MG TAB PO SCH (09:00)
[2023-09-05 09:03] LABS: Basophils # (auto) 0.04 K/uL (0.00-0.20); Basophils % (auto) 0.5 %; Eosinophils # (auto) 0.28 K/uL (0.00-0.50); Eosinophils % (auto) 3.5 %; Hematocrit (blood only) 38.1 % (42.0-52.0); Immature Granulocytes # (auto) 0.03 K/uL (0.01-0.20); Immature Granulocytes % (auto) 0.4 %; Lymphocytes # (auto) 1.41 K/uL (1.20-3.40); Lymphocytes % (auto) 17.5 %; Mean Corpuscular Hemoglobin 33.2 pg (25.0-34.0); Mean Corpuscular Hgb Conc 34.1 g/dL (32.0-36.0); Mean Corpuscular Volume 97.2 fL (80.0-100.0); Mean Platelet Volume 9.1 fL (9.4-12.4); Monocytes # (auto) 0.73 K/uL (0.11-0.59); Monocytes % (auto) 9.1 %; Neutrophils # (auto) 5.56 K/uL (1.40-6.50); Platelet Count 211 K/uL (130-400); RDW Coefficient of Variation 12.8 % (11.5-14.5); RDW Standard Deviation 45.5 fL (36.4-46.3); Red Blood Count 3.92 M/uL (4.70-6.10); White Blood Count 8.05 K/ul (4.8-10.8)
[2023-09-05 09:31] LABS: BUN Creatinine Ratio 10.5 (10-20); Calcium 8.8 mg/dl (8.6-10.3); Creatinine Clr Calc Pharmacy 99.6 ml/min; Est GFR (African American) 105.5 ml/min; Potassium 4.2 mmol/L (3.5-5.1)
--- NOTE | 2023-09-05 13:19 | Consultation ---
Date of Consultation September 05, 2023 Assessment & Plan (1) COPD (chronic obstructive pulmonary disease): Stable. Continue current medical manage (2) Essential hypertension: Stable. Continue current medical manage (3) Type 2 diabetes mellitus: ADA diet. Sliding scale insulin as necessary. Continue current medical manage (4) Seizure disorder: Stable. Continue current medical management (5) S/p reverse total shoulder arthroplasty: Right shoulder. Postoperative day 1.. Management per primary team Plan Medically stable for discharge to home per primary care team History of Present Illness Requesting Physician: Dr. Andino Reason for Consultation: Medical management Attending Physician: Misbah Wilson MD History of Present Illness 63-year-old white male status post right total shoulder arthroplasty yesterday. Postoperative day 1. The hospitalist service was consulted for medical management Allergies Allergy/AdvReac Type Severity Reaction Status Date / Time cephalexin [From Keflex] Allergy Severe Respiratory Verified 09/04/23 05:49 distress hydromorphone [From Dilaudid] Allergy Severe Seizure Verified 09/04/23 05:49 peanut Allergy Severe Anaphylaxis Verified 09/04/23 05:49 tramadol Allergy Severe Seizure Verified 09/04/23 05:49 Corticosteroids Allergy Intermediate Unknown Verified 09/04/23 05:49 (Glucocorticoids) chocolate flavor Allergy Unknown Allergy Verified 09/04/23 05:49 test positive guaifenesin [From Entex LA] Allergy Unknown Unknown Verified 09/04/23 05:49 phenylephrine [From Entex LA] Allergy Unknown Unknown Verified 09/04/23 05:49 phenylpropanolamine Allergy Unknown Unknown Verified 09/04/23 05:49 [From Entex LA] Home Medications Medication Instructions Recorded Confirmed Type albuterol sulfate 90 mcg/actuation 1 inh inhalation QID PRN sob 08/14/23 09/04/23 History aerosol inhaler (ProAir HFA) aspirin 81 mg capsule 81 mg PO HS 08/14/23 09/04/23 History carvedilol 6.25 mg tablet 6.25 mg PO BID 08/14/23 09/04/23 History cholecalciferol (vitamin D3) 125 125 mcg PO QAM 08/14/23 09/04/23 History mcg (5,000 unit) tablet (Vitamin D3) clonidine HCl 0.1 mg tablet 0.1 mg PO BID 08/14/23 09/04/23 History epinephrine 0.3 mg/0.3 mL 0.3 mg IM Q4H PRN Anaphylaxis 08/14/23 09/04/23 History injection, auto-injector fluticasone furoate 100 1 inh inhalation QAM 08/14/23 09/04/23 History mcg-vilanterol 25 mcg/dose inhalation powder (Breo Ellipta) folic acid 1 mg tablet 1 mg PO QAM 08/14/23 09/04/23 History gabapentin 100 mg capsule 100 mg PO QAM 08/14/23 09/04/23 History gabapentin 300 mg capsule 300 mg PO HS 08/14/23 09/04/23 History ipratropium 0.5 mg-albuterol 3 mg 3 ml inhalation Q4H PRN sob 08/14/23 09/04/23 History (2.5 mg base)/3 mL nebulization soln levetiracetam 750 mg tablet 1,125 mg PO QAM 08/14/23 09/04/23 History (Keppra) levetiracetam 750 mg tablet 1,500 mg PO HS 08/14/23 09/04/23 History (Keppra) levocetirizine 5 mg tablet (Xyzal) 5 mg PO HS 08/14/23 09/04/23 History loratadine 10 mg tablet 10 mg PO QAM 08/14/23 09/04/23 History metformin 500 mg tablet,extended 1,000 mg PO BID 08/14/23 09/04/23 History release 24hr multivitamin 1 tab PO QAM 08/14/23 09/04/23 History omega-3 acid ethyl esters 1 gram 1 cap PO QAM 08/14/23 09/04/23 History capsule (Lovaza) ramipril 10 mg capsule 10 mg PO QAM 08/14/23 09/04/23 History sildenafil 100 mg tablet (Viagra) 100 mg PO QAM urinary retention/BPH 08/14/23 09/04/23 History simvastatin 10 mg tablet 10 mg PO HS 08/14/23 09/04/23 History tamsulosin 0.4 mg capsule 0.4 mg PO QAM 08/14/23 09/04/23 History thiamine HCl (vitamin B1) 100 mg 100 mg PO QAM 08/14/23 09/04/23 History tablet (Vitamin B-1) tiotropium bromide 18 mcg capsule 1 cap inhalation QAM 08/14/23 09/04/23 History with inhalation device (Spiriva with HandiHaler) doxycycline hyclate 100 mg capsule 100 mg PO BID 10 days #20 caps 09/05/23 Rx oxycodone 5 mg tablet 5 - 10 mg PO .Q4h-6h PRN pain #30 09/05/23 Rx tabs Patient History Medical History Anxiety situational Asthma BPH (benign prostatic hyperplasia) Chronic bronchitis with COPD (chronic obstructive pulmonary disease) Stable Degenerative disc disease Degenerative joint disease Diabetes mellitus, type 2 NIDDM Heartburn diet controlled Hepatitis B Hx approximately 2002, no current issues per patient Hx of colonic polyp Hypertension Lyme disease Hx approximately 2017, no problems since Osteoarthritis Pneumonia Multiple, most recent episode approximately 2014 Seizure Grand-mal seizures. Last seizure approximately 2019 Follows with [facility] (annually)- appt 08/25/23 Sleep apnea 3lpm via [place] HS Transient ischemic attack (TIA) Approximately 2019 Surgical History H/O left inguinal hernia repair History of amputation left ring finger (young adult) History of cardiac cath x2 (10+ years) no stents. unable to tolerate stress test (reason for cardiac caths) History of cholecystectomy History of colonoscopy History of nasal septoplasty S/P arthroscopy of right shoulder + RCR S/P epidural steroid injection lumbar and cervical S/P hammer toe correction B/L Family History Brother FHx: colon cancer Other No family history of adverse response to anesthesia Social History Smoking Status: Current every day smoker Tobacco Type: Cigarettes Cigarettes Per Day: 20 cigs/day; Second Hand Exposure: No; Do You Dip or Chew Tobacco: No; Tobacco Cessation Education Requested by Patient: No Hx Alcohol Use: Yes Alcohol type: beer Hx Substance Use: No Preferred Language: Burkinan Communication Ability: Effective Snaker Driving Horses Required: No Beliefs That Will Affect Care: None Current Living Situation: Spouse Other Information That Helps Us Care for You: No Feels Safe at Home: Yes Safety Concerns: Feels Safe At This Time Assistive Devices: Cane, Oxygen - at Night and Walker Review of Systems Review of Systems: General-alert and oriented x3, no fevers, no chills HEENT-head atraumatic and normocephalic, pupils equal and reactive to light, extraocular muscles intact Neck-no lymphadenopathy or thyromegaly, trachea midline Chest-clear to auscultation percussion. No rales wheezing or rhonchi Cardiac-regular rate and rhythm, normal S1 and S2 Abdomen-normal bowel sounds, nontender, no hepatosplenomegaly Extremities-right arm is in a sling. No peripheral edema. Neuro-cranial nerves II through XII intact, motor and sensory function within normal limits, strength symmetrical, no focal deficits Psych-normal affect, normal mood Physical Exam Physical Exam: General-alert and oriented x3, no fevers, no chills HEENT-head atraumatic and normocephalic, pupils equal and reactive to light, extraocular muscles intact Neck-no lymphadenopathy or thyromegaly, trachea midline Chest-clear to auscultation percussion. No rales wheezing or rhonchi Cardiac-regular rate and rhythm, normal S1 and S2 Abdomen-normal bowel sounds, nontender, no hepatosplenomegaly Extremities-right arm is in a sling. Right shoulder surgical site is unremarkable. Neuro-cranial nerves II through XII intact, motor and sensory function within normal limits, strength symmetrical, no focal deficits Psych-normal affect, normal mood Results & Data Vital Signs (Past 12 Hours) Vital Signs Temp Pulse Resp BP Pulse Ox O2 Del Method O2 Flow Rate 09/05/23 07:39 36.6 C 87 16 148/95 H 92 Room Air 09/05/23 02:49 36.7 C 80 20 118/81 99 Nasal Cannula 2 Laboratory Results 09/05/23 08:18 09/05/23 08:18 PG Care Time/CCT Total # of Minutes Spent Total Time Spent with Patient: Total time spent is greater than 50% in coordination of care (as documented) at patient's floor/unit and/or counseling patient: Coding Level of Care Code 53319 IN/OBS CONSULT LVL 3,45M Diagnoses COPD (chronic obstructive pulmonary disease) J44.9 Essential hypertension I10 Type 2 diabetes mellitus E11.9 Seizure disorder G40.909 S/p reverse total shoulder arthroplasty Z96.619
--- NOTE | 2023-09-05 16:33 | Discharge Summary ---
Date of Service September 05, 2023 Admission HPI Per Admitting Provider 63yo male with PMHx significant for anxiety, asthma, BPH, COPD, HepB, DM2, HTN , seizure disorder who presents with ongoing right shoulder pain worsened after a fall in April. Patient has history of prior dislocation as well as previous rotator cuff repair with failed repair. He has ongoing pain interfering with his daily activity. He has failed conservative measures and would like to proceed with surgical intervention. Patient denies headaches, sweats, fevers, chills, double vision, blurred vision, cough, sore throat, dysphagia, chest pain, sob, wheezing, n/v/d/c, numbness, tingling, fatigue, urinary symptoms, mood disorders. ROS positive for right shoulder pain and stiffness. Admission Exam Per Admitting Provider Constitutional: well developed and well nourished; no acute distress Eyes: PERRL, conjunctivae normal, anicteric sclerae ENMT: external ear and nose normal, oropharynx normal Neck: trachea midline, no thyromegaly Respiratory: normal respiratory effort, lungs clear to auscultation Cardiovascular: RRR, no murmur, no edema Musculoskeletal: Right shoulder: Tenderness anterolateral acromion. Positive impingement signs, Significant deficits active ROM. Functional deltoid. Abduction o 45 degrees, FF to 30 degrees, ER to 10 degrees. Strength-3+/5 ER, 5-/5 IR, abduction to 3/5. Skin: no rashes, warm and dry Neurologic: patellar DTR's 2+ bilat, sensation intact Psychiatric: A+Ox3, euthymic affect Principal Diagnosis Right shoulder AVN, rotator cuff tear Discharge Exam Right shoulder: Sling is in place. Dressing is clean, dry, intact. Fingers are mobile with good acid cutter strength. Able to extend his wrist. Distally neurovascular status and sensation is grossly intact. Discharge Data Allergies Allergy/AdvReac Type Severity Reaction Status Date / Time cephalexin [From Keflex] Allergy Severe Respiratory Verified 09/04/23 05:49 distress hydromorphone [From Dilaudid] Allergy Severe Seizure Verified 09/04/23 05:49 peanut Allergy Severe Anaphylaxis Verified 09/04/23 05:49 tramadol Allergy Severe Seizure Verified 09/04/23 05:49 Corticosteroids Allergy Intermediate Unknown Verified 09/04/23 05:49 (Glucocorticoids) chocolate flavor Allergy Unknown Allergy Verified 09/04/23 05:49 test positive guaifenesin [From Entex LA] Allergy Unknown Unknown Verified 09/04/23 05:49 phenylephrine [From Entex LA] Allergy Unknown Unknown Verified 09/04/23 05:49 phenylpropanolamine Allergy Unknown Unknown Verified 09/04/23 05:49 [From Entex LA] Consultations 09/01/23 12:56 Consult Hospitalist Routine Procedures Performed Operation Date: 09/04/23 07:00 Actual Procedures p Right Reverse Total Shoulder Arthroplasty - Misbah Wilson MD Ordered Studies 09/04/23 05:00 US - OR guided needle placemen Routine Hospital Course (1) S/p reverse total shoulder arthroplasty: Postop day #1 right reverse total shoulder arthroplasty -PT/OT: No formal therapy at this time. We will do elbow/wrist/hand motions, shrugs, pendulums. No shoulder range of motion. -DVT prophylaxis: SCDs, aspirin 81 mg daily -Pain management as written -A.m. labs are pending. -Discharge planning: Plan on discharge home today as long as he continues to remain stable and progresses well with therapy. Lab Results 09/04/23 09/04/23 09/04/23 Range/Units 05:36 05:44 10:54 WBC (4.8-10.8) K/ul RBC (4.70-6.10) M/uL Hgb (14.0-18.0) g/dl Hct (42.0-52.0) % MCV (80.0-100.0) fL MCH (25.0-34.0) pg MCHC (32.0-36.0) g/dL RDW Std Deviation (36.4-46.3) fL RDW Coeff of Julio (11.5-14.5) % Plt Count (130-400) K/uL MPV (9.4-12.4) fL Immature Gran % (Auto) % Neut % (Auto) % Lymph % (Auto) % [place] % (Auto) % Eos % (Auto) % Baso % (Auto) % Neut # (Auto) (1.40-6.50) K/uL Lymph # (Auto) (1.20-3.40) K/uL [place] # (Auto) (0.11-0.59) K/uL Eos # (Auto) (0.00-0.50) K/uL Baso # (Auto) (0.00-0.20) K/uL Immature Gran # (Auto) (0.01-0.20) K/uL Sodium 131 L (136-145) mmol/L Potassium 4.3 (3.5-5.1) mmol/L Chloride 99 (98-107) mmol/L Carbon Dioxide 28 (21-32) mmol/L Anion Gap 4 (3-11) BUN 7 (6-23) mg/dl Creatinine 0.90 (0.6-1.4) mg/dl Est Cr Clr Drug Dosing 95.1 ml/min Est GFR ( Amer) 103.5 ml/min Est GFR (Non-Af Amer) 89.3 ml/min BUN/Creatinine Ratio 7.8 L (10-20) Glucose 105 H (70-99(Fasting)) mg/dl POC Glucose 104 H 151 H (70-99) mg/dl Calcium 9.2 (8.6-10.3) mg/dl 09/04/23 09/04/23 09/04/23 Range/Units 12:07 16:43 19:54 WBC (4.8-10.8) K/ul RBC (4.70-6.10) M/uL Hgb (14.0-18.0) g/dl Hct (42.0-52.0) % MCV (80.0-100.0) fL MCH (25.0-34.0) pg MCHC (32.0-36.0) g/dL RDW Std Deviation (36.4-46.3) fL RDW Coeff of Julio (11.5-14.5) % Plt Count (130-400) K/uL MPV (9.4-12.4) fL Immature Gran % (Auto) % Neut % (Auto) % Lymph % (Auto) % [place] % (Auto) % Eos % (Auto) % Baso % (Auto) % Neut # (Auto) (1.40-6.50) K/uL Lymph # (Auto) (1.20-3.40) K/uL [place] # (Auto) (0.11-0.59) K/uL Eos # (Auto) (0.00-0.50) K/uL Baso # (Auto) (0.00-0.20) K/uL Immature Gran # (Auto) (0.01-0.20) K/uL Sodium (136-145) mmol/L Potassium (3.5-5.1) mmol/L Chloride (98-107) mmol/L Carbon Dioxide (21-32) mmol/L Anion Gap (3-11) BUN (6-23) mg/dl Creatinine (0.6-1.4) mg/dl Est Cr Clr Drug Dosing ml/min Est GFR ( Amer) ml/min Est GFR (Non-Af Amer) ml/min BUN/Creatinine Ratio (10-20) Glucose (70-99(Fasting)) mg/dl POC Glucose 134 H 118 H 119 H (70-99) mg/dl Calcium (8.6-10.3) mg/dl 09/05/23 09/05/23 09/05/23 Range/Units 07:45 08:18 08:18 WBC 8.05 (4.8-10.8) K/ul RBC 3.92 L (4.70-6.10) M/uL Hgb 13.0 L (14.0-18.0) g/dl Hct 38.1 L (42.0-52.0) % MCV 97.2 (80.0-100.0) fL MCH 33.2 (25.0-34.0) pg MCHC 34.1 (32.0-36.0) g/dL RDW Std Deviation 45.5 (36.4-46.3) fL RDW Coeff of Julio 12.8 (11.5-14.5) % Plt Count 211 (130-400) K/uL MPV 9.1 L (9.4-12.4) fL Immature Gran % (Auto) 0.4 % Neut % (Auto) 69.0 % Lymph % (Auto) 17.5 % [place] % (Auto) 9.1 % Eos % (Auto) 3.5 % Baso % (Auto) 0.5 % Neut # (Auto) 5.56 (1.40-6.50) K/uL Lymph # (Auto) 1.41 (1.20-3.40) K/uL [place] # (Auto) 0.73 H (0.11-0.59) K/uL Eos # (Auto) 0.28 (0.00-0.50) K/uL Baso # (Auto) 0.04 (0.00-0.20) K/uL Immature Gran # (Auto) 0.03 (0.01-0.20) K/uL Sodium 135 L (136-145) mmol/L Potassium 4.2 (3.5-5.1) mmol/L Chloride 102 (98-107) mmol/L Carbon Dioxide 30 (21-32) mmol/L Anion Gap 3 (3-11) BUN 9 (6-23) mg/dl Creatinine 0.86 (0.6-1.4) mg/dl Est Cr Clr Drug Dosing 99.6 ml/min Est GFR ( Amer) 105.5 ml/min Est GFR (Non-Af Amer) 91.0 ml/min BUN/Creatinine Ratio 10.5 (10-20) Glucose 121 H (70-99(Fasting)) mg/dl POC Glucose 157 H (70-99) mg/dl Calcium 8.8 (8.6-10.3) mg/dl 09/05/23 Range/Units 11:42 WBC (4.8-10.8) K/ul RBC (4.70-6.10) M/uL Hgb (14.0-18.0) g/dl Hct (42.0-52.0) % MCV (80.0-100.0) fL MCH (25.0-34.0) pg MCHC (32.0-36.0) g/dL RDW Std Deviation (36.4-46.3) fL RDW Coeff of Julio (11.5-14.5) % Plt Count (130-400) K/uL MPV (9.4-12.4) fL Immature Gran % (Auto) % Neut % (Auto) % Lymph % (Auto) % [place] % (Auto) % Eos % (Auto) % Baso % (Auto) % Neut # (Auto) (1.40-6.50) K/uL Lymph # (Auto) (1.20-3.40) K/uL [place] # (Auto) (0.11-0.59) K/uL Eos # (Auto) (0.00-0.50) K/uL Baso # (Auto) (0.00-0.20) K/uL Immature Gran # (Auto) (0.01-0.20) K/uL Sodium (136-145) mmol/L Potassium (3.5-5.1) mmol/L Chloride (98-107) mmol/L Carbon Dioxide (21-32) mmol/L Anion Gap (3-11) BUN (6-23) mg/dl Creatinine (0.6-1.4) mg/dl Est Cr Clr Drug Dosing ml/min Est GFR ( Amer) ml/min Est GFR (Non-Af Amer) ml/min BUN/Creatinine Ratio (10-20) Glucose (70-99(Fasting)) mg/dl POC Glucose 108 H (70-99) mg/dl Calcium (8.6-10.3) mg/dl Total Time Total Time Spent Total Time Spent (In Minutes): 20 Discharge Plan Discharge Items Patient Disposition: Home - Self-Care Reason For Visit: Right Shoulder Rotator Cuff Arthroplasty Discharge Diagnosis: Right shoulder AVN Activity: Per Instructions section Non-emergency contact: Surgeon Call non-emergency contact if: you have any medication questions, your pain is not controlled, your pain is concerning for you, you have a fever, your temperature is above 101, your wound has increased redness and your wound has increased drainage Follow-up/Referrals: Evelyn Naranjo PA-C [Primary Care Provider] - Diet: Regular Addtl Attending Provider Instructions: ACTIVITY RECOMMENDATIONS: SELF CARE INSTRUCTIONS AFTER TOTAL SHOULDER ARTHROPLASTY REVERSE A. You may do daily exercises as taught in physical therapy while in hospital. No lifting with the operative arm. B. You are to wear your sling/immobilizer at all times EXCEPT when performing your daily exercises and for hygiene purposes. C. You may perform dry, daily dressing changes. Please keep your incision covered. You may shower 48 hours after surgery. Do not apply soap or any ointment/lotions directly over incision. Do not soak incision in bath tub/swimming pool. D. You may use ice as needed to operative shoulder. SPECIAL CARE INSTRUCTIONS: VERY IMPORTANT TO READ AND REVIEW A. There are a few signs you need to watch for after you are home. Call [facility] [place] at [phone] if you experience any of the followin. Increased severe shoulder pain. Some pain is expected especially when you exercise. 2. Increased swelling in you shoulder or arm; pain or swelling in either upper extremity. 3. Any fluid drainage from the incision. 4. Shortness of breath or chest pain. B. Please call [facility] at [phone] if you have any questions or concerns about your operation or recovery. C. Call your physician if: 1. Temperature is greater than 101 degrees (F). 2. Pain is not relieved by prescribed pain medications. 3. Increase drainage or redness from incision. 4. Unanswered questions or concerns. FOLLOW UP VISIT: Please call [facility] at [phone] to schedule a follow up appointment with Dr. Wilson or his PA in 12-14 days from your surgery date. Stand-Alone Forms: [facility] [employer], Smoking Cessation Medications and DC Order Prescriptions: New oxycodone 5 mg Tablet 5 - 10 mg PO .Q4h-6h MDD 6 PRN (Reason: pain) Qty: 30 0RF Rx Instructions: Ongoing therapy, Dr. Wilson supervising doxycycline hyclate 100 mg capsule 100 mg PO BID 10 Days Qty: 20 0RF Continued multivitamin Tablet 1 tab PO QAM clonidine HCl 0.1 mg Tablet 0.1 mg PO BID carvedilol 6.25 mg Tablet 6.25 mg PO BID Rx Instructions: must administer with a meal/food ipratropium-albuterol 0.5 mg-3 mg(2.5 mg base)/3 mL Solution For Nebulization 3 ml INHALATION Q4H PRN (Reason: sob) simvastatin 10 mg Tablet 10 mg PO HS thiamine HCl (vitamin B1) [Vitamin B-1] 100 mg Tablet 100 mg PO QAM sildenafil [Viagra] 100 mg Tablet 100 mg PO QAM tamsulosin 0.4 mg Capsule 0.4 mg PO QAM gabapentin 300 mg Capsule 300 mg PO HS folic acid 1 mg Tablet 1 mg PO QAM levetiracetam [Keppra] 750 mg Tablet 1,500 mg PO HS levetiracetam [Keppra] 750 mg Tablet 1,125 mg PO QAM gabapentin 100 mg Capsule 100 mg PO QAM epinephrine 0.3 mg/0.3 mL Auto-Injector 0.3 mg IM Q4H PRN (Reason: Anaphylaxis) albuterol sulfate [ProAir HFA] 90 mcg/actuation Hfa Aerosol Inhaler 1 inh INHALATION QID PRN (Reason: sob) loratadine 10 mg Tablet 10 mg PO QAM ramipril 10 mg Capsule 10 mg PO QAM tiotropium bromide [Spiriva with HandiHaler] 18 mcg Capsule, W/Inhalation Device 1 cap INHALATION QAM Rx Instructions: puncture 1 cap using device; one dose = 2 inhalations metformin 500 mg Tablet Extended Release 24hr 1,000 mg PO BID omega-3 acid ethyl esters [Lovaza] 1 gram Capsule 1 cap PO QAM levocetirizine [Xyzal] 5 mg Tablet 5 mg PO HS cholecalciferol (vitamin D3) [Vitamin D3] 125 mcg (5,000 unit) Tablet 125 mcg PO QAM fluticasone furoate-vilanterol [Breo Ellipta] 100-25 mcg/dose Blister With Device 1 inh INHALATION QAM aspirin 81 mg Capsule 81 mg PO HS Discontinued oxycodone 5 mg Tablet 5 mg PO TID PRN (Reason: Severe Pain (Scale Score 7-10)) Discharge Orders: Discharge Order (Routine); Ordered 09/05/23 Ordered By: Gopal Macias/Other Patient Handouts: Understanding Deep Vein Thrombosis, DVT Post Op Prevention Admission Data Admit Date/Time: 09/04/23 10:58 Attending Provider: Misbah Wilson Admit Provider: Misbah Wilson Primary Care Provider: Evelyn Naranjo Other Providers: Fernando Snyder Robert R. Other Interventions: Discharge Summary Assessment (RN) Last Done: 09/05/23 09:41
[2023-09-05] MEDS ORDERED: ASPIRIN 81 MG ECTAB PO SCH (21:00)
== END 2023-09-05 12:39 | disposition home or self-care (01) ==
LOC: ASU 05:13 → 3E 05:13